=== PATIENT | female | born 1985 | race Asian ===

== ENCOUNTER 2017-01-16 22:37 | Emergency (ER) | payer BC ==
[2017-01-16 22:55] VITALS: BP 131/97
[2017-01-16 23:16] LABS: APPEARANCE,URINE CLEAR; BILIRUBIN,URINE NEGATIVE (NEGATIVE); GLUCOSE, URINE NEGATIVE (NEGATIVE); KETONES,URINE NEGATIVE (NEGATIVE); LEUKOCYTE ESTERASE,URINE NEGATIVE (NEGATIVE); NITRITE,URINE POSITIVE (NEGATIVE); PROTEIN,URINE NEGATIVE (NEGATIVE); URINE SPECIFIC GRAVITY 1.004
--- NOTE | 2017-01-17 02:36 | ER Document Report ---
ED General - General Chief Complaint: Vaginal Pain Stated Complaint: VAGINAL PAIN Notes: Patient is a 31-year-old female who presents with acute onset of vaginal itching and burning approximate 2 hours prior to arrival. States she was recently treated for a urinary tract infection but that this never truly resolved her symptoms of urethritis. No history of similar symptoms in the past. She is sexually active but states that she does not believe she has been exposed to sexual transmitted infection. Denies any significant vaginal discharge or bleeding. Denies any abdominal pain. States she applied topical lidocaine with minimal improvement of the pain. Nothing worsens her pain. She has not seen her primary care doctor regarding today's concerns. TRAVEL OUTSIDE OF THE [place] IN LAST 30 DAYS: No - Related Data Allergies/Adverse Reactions: acetaminophen [From Vicodin] Allergy (Verified 01/16/17 22:56) amoxicillin Allergy (Verified 01/16/17 22:56) hydrocodone [From Vicodin] Allergy (Verified 01/16/17 22:56) Past Medical History - General Information source: Patient - Social History Smoking Status: Never Smoker Frequency of alcohol use: None Drug Abuse: None Lives with: Family Family History: Reviewed & Not Pertinent Patient has suicidal ideation: No Patient has homicidal ideation: No Renal/ Medical History: Denies: Hx Peritoneal Dialysis Review of Systems - Review of Systems Notes: Constitutional: Negative for fever. HENT: Negative for sore throat. Eyes: Negative for visual changes. Cardiovascular: Negative for chest pain. Respiratory: Negative for shortness of breath. Gastrointestinal: Negative for abdominal pain, vomiting or diarrhea. Genitourinary: Positive for vaginal itching and burning Musculoskeletal: Negative for back pain. Skin: Negative for rash. Neurological: Negative for headaches, weakness or numbness. 10 point ROS negative except as marked above and in HPI. Physical Exam - Vital signs Vitals: Temp Pulse Resp BP Pulse Ox 98.4 F 97 18 131/97 H 97 01/16/17 22:52 01/16/17 22:52 01/16/17 22:52 01/16/17 22:52 01/16/17 22:52 Interpretation: Normal Notes: PHYSICAL EXAMINATION: GENERAL: Well-appearing, well-nourished and in no acute distress. HEAD: Atraumatic, normocephalic. EYES: sclera anicteric, conjunctiva are normal. ENT: Moist mucous membranes. NECK: Normal range of motion LUNGS: Normal work of breathing HEART: 2+ radial pulses bilaterally EXTREMITIES: no pitting or edema. No cyanosis. Abdomen: No focal tenderness rebound or guarding : No significant discharge. No obvious lesions or erythema. No adnexal tenderness. No cervical motion tenderness NEUROLOGICAL: No focal neurological deficits. Moves all extremities spontaneously and on command. PSYCH: Normal mood, normal affect. SKIN: Warm, Dry, normal turgor, no rashes or lesions noted. Course - Re-evaluation Re-evalutation: 01/17/17 02:33 Patient presents with vaginal burning and urethritis is otherwise well in appearance, vitals within normal limits. Pelvic exam shows scant vaginal discharge. No adnexal tenderness or no cervical motion tenderness. Wet prep shows minimal WBCs. Gonorrhea and Chlamydia are pending. Patient has declined empiric treatment for gonorrhea and chlamydia. Urinalysis is not consistent with a urinary tract infection. She will be discharged home with a prescription for Flagyl which she can begin taking should her symptoms not resolve the next several days.At this time will discharge with return precautions and follow-up recommendations. Verbal discharge instructions given a the bedside and opportunity for questions given. Medication warnings reviewed. Patient is in agreement with this plan and has verbalized understanding of return precautions and the need for primary care follow-up in the next 24-72 hours. - Vital Signs Vital signs: Temp Pulse Resp BP Pulse Ox 98.4 F 97 18 131/97 H 97 01/16/17 22:52 01/16/17 22:52 01/16/17 22:52 01/16/17 22:52 01/16/17 22:52 - Laboratory Laboratory results interpreted by me: 01/16/17 23:00 Urine Nitrite POSITIVE H Urine Urobilinogen 4.0 H Discharge - Discharge Clinical Impression: Vaginal itching Condition: Good Disposition: HOME, SELF-CARE Additional Instructions: You are being treated for bacterial vaginosis, an overgrowth of normal bacteria in the vagina. As we have discussed, your labs are not 100% consistent with this diagnosis but we have elected to send you home with prescription in case your symptoms do not improve in the next several days. You are being sent home on an antibiotic called metronidazole. Take exactly as directed. Never drink alcohol while taking this antibiotic. Please return if you develop abdominal pain, fever greater than 101F, some vomiting, or any other symptoms that are concerning to you. Prescriptions: Metronidazole [Flagyl 500 mg Tablet] 500 mg PO Q6H #28 tablet
[2017-01-17 03:46] LABS: CHLAM PCR NOT DETECTED (NOT DETECT)
== END 2017-01-17 02:50 | disposition home or self-care (01) ==
LOC: ER 22:37
DX: N34.2 Other urethritis (principal); L29.8 Other pruritus; Z88.5 Allergy status to narcotic agent; Z88.0 Allergy status to penicillin
CPT/HCPCS: 81001; 87210; 87491; 87591; 99283